=== PATIENT | female | born 1955 | race Caucasian/White ===

== ENCOUNTER 2022-03-24 08:53 | Outpatient (REF) | payer MEDICARE, SELFPAY ==
[2022-03-24 12:02] LABS: C Reactive Protein < 0.04 mg/dL (< or = 0.50); Cholesterol 169 mg/dL; HDL Cholesterol 62 mg/dL; LDL Cholesterol Calculated 95 mg/dl; Triglycerides 60 mg/dL
[2022-03-24 12:20] LABS: Erythrocyte Sedimentation Rate 2 MM/HR (0-20)
== END 2022-03-24 08:54 | disposition home or self-care (01) ==
LOC: HO.HMGCLDS 08:53
PROVIDERS: PCP Internal Medicine; Visit Provider Internal Medicine
DX: Z00.00 Encounter for general adult medical examination without abnormal findings (principal)
CPT/HCPCS: 36415; 80061; 85652; 86140

== ENCOUNTER 2022-12-20 11:48 | Outpatient (AMB) | payer MEDICARE, SELFPAY ==
[2022-12-20 11:56] VITALS: BP 128/86; PULSE 83; O2SAT 99; BMI 24.8
--- NOTE | 2022-12-20 11:56 | A.OFFPC_ITS ---
Vital Signs 12/20/22 11:56 Height 5 ft 10 in Weight 173 lb BMI 24.8 BP 128/86 Blood Pressure Location Rt brachial Position Sitting Pulse 83 Pulse Source Pulse Oximeter Pulse Oximetry (%) 99 Oxygen Delivery Method Room Air Intake Visit Reasons: Pap smear Intake Note: pt says she has some concerns about her BP Allergies Penicillins Adverse Reaction (Unknown, Verified 12/20/22 12:02) Rash Medication List - Last Reconciled 12/20/22 by Kirstie Cedillo MD rizatriptan take 1 tablet at onset of headache; if no relief, may repeat 1 tablet after at least 2 hrs PO Tobacco use date assessed: 12/20/22 Fall risk assessment: No Falls in past year Last assessed Fall Risk: 12/20/22 Dental Screening Dental Screen Date: 12/20/22 Did you have a dental visit in the last 12 months?: Yes Did you have a dental problem in the last 6 months where you did not have access to dental care?: No Was dental information given to patient?: Patient has dentist HPI Pap smear HPI Details Pt presents for pap smear required by renal transplant team to be a kidney donor. Pt was found to have borderline elevated BP and had 24 BP monitoring which showed mostly well controlled blood pressure. Patient has been taking gabapentin for essential tremor prescribed by neurologist. She reports significantly improved migraine headaches since started taking gabapentin. 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 Rocael Nieves, Melia Wilson, Mark Cullen and colleagues, with an educational sergio from [employer]. Review of Systems Const All systems reviewed & are unremarkable except as noted in HPI and below Reports no additional complaints Eyes Reports no additional complaints ENT Reports no additional complaints Card Reports no additional complaints Resp Reports no additional complaints GI Reports no additional complaints Physical exam (Primary Care) Vital Signs: Last Vital Signs Pulse 83 12/20/22 11:56 BP 128/86 12/20/22 11:56 Pulse Ox 99 12/20/22 11:56 Oxygen Delivery Method Room Air 12/20/22 11:56 BMI result Body Mass Index 24.8 Tobacco/Smoking Status: Tobacco use Status Tobacco use date assessed 12/20/22 12/20/22 12:04 Patient Tobacco Use Status Never used Tobacco 12/20/22 11:57 e-Cigarette/Vaping Use Never Used 12/20/22 11:57 Thrive Assessment: Date of Thrive Assessment Date Thrive assessed 08/11/22 12/20/22 11:57 Const General: no acute distress HENMT Face and sinus: Yes normal facial exam Resp Effort & Inspection: normal respiratory effort Auscultation: clear to auscultation bilaterally Cardio Rhythm: regular rhythm Heart sounds: S1 normal heart sound present and S2 normal heart sound present GI Inspection: Yes normal to inspection Palpation (GI): Soft to palpation Auscultation: normal bowel sounds Speculum Exam - Vagina: vagina atrophic Speculum Exam - Cervix: normal appearance of the cervix Bimanual exam- vagina & uterus: normal bimanual exam Assessment and Plan Assessment & Plan (1) Migraine headache: Comment: f/u Neurology [facility] Code(s): G43.909 - Migraine, unspecified, not intractable, without status migrainosus Plan: CONTINUE GABAPENTIN (2) Elevated BP without diagnosis of hypertension: Code(s): R03.0 - Elevated blood-pressure reading, without diagnosis of hypertension Plan: Low sodium diet regular cardiovascular exercise discussed with the patient. (3) Annual physical exam: Code(s): Z00.00 - Encounter for general adult medical examination without abnormal findings Plan: Pap smear was done Orders: Orders Pap Smear Today Z00.00 - Encounter for general adult medical examination without abnormal findings Medications: New timolol maleate 0.25% 1 drp ophthalmic (eye) DAILY 5 mL 0RF gabapentin 300 mg PO BID 60 caps 0RF Coding Level of Care Code Est Pt Level 4 (20631) Diagnoses Migraine headache G43.909 Elevated BP without diagnosis of hypertension R03.0 Annual physical exam Z00.00
== END 2022-12-20 12:54 | disposition home or self-care (01) ==
PROVIDERS: PCP Internal Medicine; Visit Provider Internal Medicine
DX: G43.909 Migraine, unspecified, not intractable, without status migrainosus (principal); R03.0 Elevated blood-pressure reading, without diagnosis of hypertension; Z00.00 Encounter for general adult medical examination without abnormal findings
CPT/HCPCS: 99214

== ENCOUNTER 2022-12-20 13:47 | Outpatient (REF) | payer MEDICARE, SELFPAY | END 2022-12-20 13:48 | disposition home or self-care (01) | LOC: HO.LNP 13:47 | PROVIDERS: Visit Provider Internal Medicine | DX: Z12.4 Encounter for screening for malignant neoplasm of cervix (principal); Z11.51 Encounter for screening for human papillomavirus (HPV) | CPT/HCPCS: 87624; 88142 ==

== ENCOUNTER 2023-03-27 11:18 | Outpatient (AMB) | payer MEDICARE, SELFPAY ==
[2023-03-27 11:44] VITALS: BP 108/64; PULSE 59; O2SAT 98; BMI 23.0
--- NOTE | 2023-03-27 11:44 | MHC.PC.OV ---
Vital Signs 03/27/23 11:44 Height 5 ft 10 in Weight 160 lb BMI 23.0 BP 108/64 Blood Pressure Location Lt brachial Position Sitting Pulse 59 Pulse Source Pulse Oximeter Pulse Oximetry (%) 98 Oxygen Delivery Method Room Air Intake Visit Reasons: PE Intake Note: Pt is here today for PE. Allergies Penicillins Adverse Reaction (Unknown, Verified 03/27/23 11:47) Rash Medication List - Last Reconciled 03/27/23 by Kirstie Cedillo MD gabapentin 300 mg PO BID rizatriptan take 1 tablet at onset of headache; if no relief, may repeat 1 tablet after at least 2 hrs PO timolol maleate 0.25% 1 drp ophthalmic (eye) DAILY Tobacco use date assessed: 03/27/23 Fall risk assessment: No Falls in past year Last assessed Fall Risk: 03/27/23 Dental Screening Dental Screen Date: 03/27/23 Did you have a dental visit in the last 12 months?: Yes Did you have a dental problem in the last 6 months where you did not have access to dental care?: No Was dental information given to patient?: Patient has dentist HPI PE HPI Details Patient presents for physical. Patient reports chronic diarrhea with of bloating and has been modifying had diet decreasing carbohydrates and fruits and vegetables. Patient had negative GI workup in May including colonoscopy EGD and CT of the abdomen. Patient lost 15 lb since December. 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 How often do you have a drink containing alcohol?: Never 3. How often do you have six or more drinks on one occasion?: Never Total Score: 0 VANE-7 AMB Questionnaire VANE-7 Date VANE - 7 assessed: 08/11/22 Feeling nervous, anxious, or on edge: 0 = Not at all Not being able to stop or control worryin = Not at all Worrying too much about different things: 0 = Not at all Trouble relaxin = Not at all Being so restless that it is hard to sit still: 0 = Not at all Becoming easily annoyed or irritable: 0 = Not at all Feeling afraid as if something awful might happen: 0 = Not at all Total VANE-7 score (0-4 normal; 5-9 mild; 10-14 moderate; 15-21 severe): 0 Source: Developed by Drs. Rocael Nieves, Melia Wilson, Mark Cullen and colleagues, with an educational sergio from [employer]. Review of Systems Const All systems reviewed & are unremarkable except as noted in HPI and below Reports no additional complaints Eyes Reports no additional complaints ENT Reports no additional complaints Card Reports no additional complaints Resp Reports no additional complaints GI Reports no additional complaints Reports no additional complaints Physical exam (Primary Care) Vital Signs: Last Vital Signs Pulse 59 03/27/23 11:44 BP 108/64 03/27/23 11:44 Pulse Ox 98 03/27/23 11:44 Oxygen Delivery Method Room Air 03/27/23 11:44 BMI result Body Mass Index 23.0 Tobacco/Smoking Status: Tobacco use Status Tobacco use date assessed 03/27/23 03/27/23 11:50 Patient Tobacco Use Status Never used Tobacco 03/27/23 11:50 e-Cigarette/Vaping Use Never Used 03/27/23 11:44 Thrive Assessment: Date of Thrive Assessment Date Thrive assessed 08/11/22 03/27/23 11:44 Const General: no acute distress HENMT Head: Yes normal to inspection Ears: hearing grossly normal bilaterally Face and sinus: Yes normal facial exam Eyes General: appearance normal, both eyes and all related structures Neck Neck: Yes no lymphadenopathy and Yes supple Resp Effort & Inspection: normal respiratory effort Auscultation: clear to auscultation bilaterally Cardio Rhythm: regular rhythm Heart sounds: S1 normal heart sound present and S2 normal heart sound present GI Inspection: Yes normal to inspection Palpation (GI): Soft to palpation Percussion: Yes normal to percussion Auscultation: normal bowel sounds Assessment and Plan Assessment & Plan (1) Weight loss: Code(s): R63.4 - Abnormal weight loss Plan: Increasing caloric intake discussed with the patient. She will return for fasting blood work including TSH CBC comprehensive panel (2) Neck pain: Code(s): M54.2 - Cervicalgia Plan: For chronic neck pain patient will schedule appointment for physical therapy in [place] (3) Postmenopausal: Code(s): Z78.0 - Asymptomatic menopausal state Plan: Patient will schedule DEXA at [facility] (4) Hx of colonoscopy: Comment: 07/09 negative [facility] GI Dr. Linn Code(s): Z98.890 - Other specified postprocedural states (5) Annual physical exam: Code(s): Z00.00 - Encounter for general adult medical examination without abnormal findings Plan: Well-balanced diet and regular physical activity discussed with the pt (6) Chronic diarrhea: Comment: f/u GI Dr. De La Cruz, EGD consistent with chronic gastritis and negative colonoscopy in June 2022, blood work and stool studies for C diff H pylori and celiac negative Code(s): K52.9 - Noninfective gastroenteritis and colitis, unspecified Orders: Orders Comprehensive [place]. Panel Fast Today R63.4 - Abnormal weight loss Complete Blood Count Auto Diff Today R63.4 - Abnormal weight loss TSH reflex Free T4 Today R63.4 - Abnormal weight loss Lipid Panel Today R63.4 - Abnormal weight loss IRON PROFILE Today R63.4 - Abnormal weight loss Vitamin D 25-OH Total Today R63.4 - Abnormal weight loss PT Evaluation and Treatment Today M54.2 - Cervicalgia XR DEXA axial skeleton Today Z78.0 - Asymptomatic menopausal state Coding Level of Care Code Est Pt Prev Care >65y(84675) Diagnoses Weight loss R63.4 Neck pain M54.2 Postmenopausal Z78.0 Hx of colonoscopy Z98.890 Annual physical exam Z00.00 Chronic diarrhea K52.9
== END 2023-03-27 12:48 | disposition home or self-care (01) ==
PROVIDERS: PCP Internal Medicine; Visit Provider Internal Medicine
DX: R63.4 Abnormal weight loss (principal); M54.2 Cervicalgia; K52.9 Noninfective gastroenteritis and colitis, unspecified; Z78.0 Asymptomatic menopausal state; Z98.890 Other specified postprocedural states
CPT/HCPCS: 99214

== ENCOUNTER 2023-03-29 08:29 | Outpatient (REF) | payer MEDICARE, SELFPAY ==
[2023-03-29 11:34] LABS: MANUAL DIFF FLAG NO
[2023-03-29 11:48] LABS: Basophils Percent Auto 0.3 % (0-2); Eosinophils Percent Auto 0.8 % (0-4); Hematocrit 38.4 % (37.0-47.0); Hemoglobin 12.5 g/dl (12.0-16.0); Imm Gran Abs Auto 0.01 X10*3/uL (0.00-0.03); Imm Gran Pct Auto 0.3 % (0.0-0.4); Lymphocytes Absolute Auto 1.7 X10*3/uL (1.2-4.9); Lymphocytes Percent Auto 45.3 % (20-40); Mean Corpuscular HGB Conc 32.6 g/dl (31.0-35.0); Mean Corpuscular Hemoglobin 29.9 pg (27.0-33.0); Mean Corpuscular Volume 91.9 fL (80.0-98.0); Monocytes Absolute Auto 0.3 X10*3/uL (0.1-1.2); Monocytes Percent Auto 8.9 % (2-11); Neutrophils Absolute Auto 1.7 x10*3/uL (2.0-8.3); Neutrophils Percent Auto 44.4 % (45-73); Platelet Count 160 X10*3/uL (160-400); Red Blood Count 4.18 X10*6/uL (4.20-5.50); Red Cell Distribution Width 14.2 % (11.0-16.0); White Blood Count 3.8 X10*3/uL (4.8-10.8)
[2023-03-29 12:28] LABS: Alanine Aminotransferase 13 U/L (0-31); Alkaline Phosphatase 78 U/L (39-117); Anion Gap 8 (12-20); Aspartate Amino Transferase 13 U/L (5-31); Bilirubin Total 0.6 mg/dL (0.0-1.0); Blood Urea Nitrogen 16 mg/dL (9-16); Calcium 9.2 mg/dL (8.4-10.2); Carbon Dioxide 31 mmol/L (22-29); Chloride 104 mmol/L (96-108); Cholesterol 174 mg/dL (<200); Estimated Glomerular Filt Rate > 60; Glucose Fasting 92 mg/dL (60-99); HDL Cholesterol 61 mg/dL (>40); Iron 83 mcg/dL (30-160); LDL Cholesterol Calculated 102 mg/dL (<100); Percent Iron Saturation 40 % (15-50); Potassium 4.5 mmol/L (3.3-5.1); Sodium 138 mmol/L (135-145); Total Iron Binding Capacity 207 mcg/dL (228-428); Total Protein 6.5 g/dL (6.5-8.0); Triglycerides 57 mg/dL (<150); Unsaturated Iron Binding 124 ug/dL
[2023-03-29 12:31] LABS: TSH reflex Free T4 1.45 uIU/mL (0.32-4.0); Vitamin D 25-OH Total 39.8 ng/mL (>30)
== END 2023-03-29 08:30 | disposition home or self-care (01) ==
LOC: HO.HMGCLDS 08:29
PROVIDERS: PCP Internal Medicine; Visit Provider Internal Medicine
DX: R63.4 Abnormal weight loss (principal)
CPT/HCPCS: 36415; 80053; 80061; 82306; 83540; 84443; 85025

== ENCOUNTER 2023-05-30 10:48 | Outpatient (AMB) | payer MEDICARE, SELFPAY ==
[2023-05-30 11:05] VITALS: BP 124/74; PULSE 57; O2SAT 98; BMI 23.0
--- NOTE | 2023-05-30 11:05 | MHC.PC.OV ---
Vital Signs 05/30/23 11:05 Height 5 ft 10 in Weight 160 lb BMI 23.0 BP 124/74 Blood Pressure Location Lt brachial Position Sitting Pulse 57 Pulse Source Pulse Oximeter Pulse Oximetry (%) 98 Oxygen Delivery Method Room Air Intake Visit Reasons: digestive issues Intake Note: Pt is here today for a sick visit. Pt c/o digestive issues. Allergies Penicillins Adverse Reaction (Unknown, Verified 05/30/23 11:10) Rash Medication List - Last Reconciled 05/30/23 by Kirstie Cedillo MD gabapentin 300 mg PO BID rizatriptan take 1 tablet at onset of headache; if no relief, may repeat 1 tablet after at least 2 hrs PO timolol maleate 0.25% 1 drp ophthalmic (eye) DAILY Tobacco use date assessed: 05/30/23 HPI digestive issues HPI Details Pt presents for f/u IBS. Pt has been working with tribal council member trying to eliminate different food products from her diet. she is feeling better. diarrhea resolved and patient has been able to maintain her weight. 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 Rocael Nieves, Melia Wilson, Mark Cullen and colleagues, with an educational sergio from [employer]. Review of Systems Const All systems reviewed & are unremarkable except as noted in HPI and below Reports no additional complaints Eyes Reports no additional complaints ENT Reports no additional complaints Card Reports no additional complaints Resp Reports no additional complaints GI Reports no additional complaints Reports no additional complaints Physical exam (Primary Care) Vital Signs: Last Vital Signs Pulse 57 05/30/23 11:05 BP 124/74 05/30/23 11:05 Pulse Ox 98 05/30/23 11:05 Oxygen Delivery Method Room Air 05/30/23 11:05 BMI result Body Mass Index 23.0 Tobacco/Smoking Status: Tobacco use Status Tobacco use date assessed 05/30/23 05/30/23 11:15 Patient Tobacco Use Status Never used Tobacco 05/30/23 11:05 e-Cigarette/Vaping Use Never Used 05/30/23 11:05 Thrive Assessment: Date of Thrive Assessment Date Thrive assessed 08/11/22 05/30/23 11:05 Const General: no acute distress HENMT Head: Yes normal to inspection Ears: hearing grossly normal bilaterally Face and sinus: Yes normal facial exam Mouth: Normal oral and palatal mucosa present Throat: Yes posterior oropharynx normal Eyes General: appearance normal, both eyes and all related structures Neck Neck: Yes no lymphadenopathy and Yes supple Resp Effort & Inspection: normal respiratory effort Auscultation: clear to auscultation bilaterally Cardio Rhythm: regular rhythm Heart sounds: S1 normal heart sound present and S2 normal heart sound present GI Inspection: Yes normal to inspection Palpation (GI): Soft to palpation Percussion: Yes normal to percussion Auscultation: normal bowel sounds Assessment and Plan Assessment & Plan (1) Neutropenia: Code(s): D70.9 - Neutropenia, unspecified Plan: recheck CBC and vit B 12 level (2) IBS (irritable bowel syndrome): Code(s): K58.9 - Irritable bowel syndrome without diarrhea Plan: CONTINUE HIGH-FIBER DIET AND FOLLOW-UP tribal council member and GI (3) Migraine headache: Comment: f/u Neurology [facility] Code(s): G43.909 - Migraine, unspecified, not intractable, without status migrainosus Plan: Follow-up with neurology continue rizatriptan p.r.n. Orders: Orders Complete Blood Count Man Dif Today D70.9 - Neutropenia, unspecified Vitamin B12 and Folate Today D70.9 - Neutropenia, unspecified Coding Level of Care Code Est Pt Level 4 (67346) Diagnoses Neutropenia D70.9 IBS (irritable bowel syndrome) K58.9 Migraine headache G43.909
== END 2023-05-30 11:44 | disposition home or self-care (01) ==
PROVIDERS: PCP Internal Medicine; Visit Provider Internal Medicine
DX: D70.9 Neutropenia, unspecified (principal); K58.9 Irritable bowel syndrome, unspecified; G43.909 Migraine, unspecified, not intractable, without status migrainosus
CPT/HCPCS: 99214

== ENCOUNTER 2023-05-30 11:44 | Outpatient (REF) | payer MEDICARE, SELFPAY ==
[2023-05-30 13:32] LABS: Baso%MD 0.2 %; Eos%MD 0.5 %; Hematocrit 38.5 % (37.0-47.0); Hemoglobin 12.6 g/dl (12.0-16.0); IG%MD 0.2 %; Lymph%MD 51.8 %; Mean Corpuscular HGB Conc 32.7 g/dl (31.0-35.0); Mean Corpuscular Hemoglobin 29.6 pg (27.0-33.0); Mean Corpuscular Volume 90.6 fL (80.0-98.0); Mean Platelet Volume 10.9 fL (9.4-12.3); Mono%MD 8.2 %; Neut%MD 39.1 %; Platelet Count 158 X10*3/uL (160-400); Red Blood Count 4.25 X10*6/uL (4.20-5.50); Red Cell Distribution Width 13.7 % (11.0-16.0); White Blood Count 4.2 X10*3/uL (4.8-10.8)
[2023-05-30 14:38] LABS: Folate 12.6 ng/mL (> or = 4.0); Vitamin B12 356 pg/mL (200-900)
[2023-05-30 14:50] LABS: Band Neutrophils Percent 0 % (3-5); Lymphocytes Absolute Manual 1.9 X10*3/uL (1.2-4.9); Lymphocytes Percent Manual 46 % (20-40); Monocytes Absolute Manual 0.3 X10*3/uL (0.1-1.2); Monocytes Percent Manual 6 % (2-11); Neutrophils Percent Manual 48 % (45-73)
[2023-05-30 14:51] LABS: RBC Morphology NOTED
[2023-05-30 14:52] LABS: Acanthocytes 1+ (0-2) /OIF; Ovalocytes 1+ (5-14) /OIF
[2023-05-30 14:53] LABS: Platelet Estimate NORMAL (NORMAL)
[2023-05-30 14:54] LABS: Platelet Morphology Comment NORMAL
== END 2023-05-30 11:45 | disposition home or self-care (01) ==
LOC: HO.HMGCLDS 11:44
PROVIDERS: PCP Internal Medicine; Visit Provider Internal Medicine
DX: D70.9 Neutropenia, unspecified (principal)
CPT/HCPCS: 36415; 82607; 82746; 85007; 85027

== ENCOUNTER 2023-11-29 08:36 | Outpatient (REF) | payer MEDICARE, SELFPAY ==
[2023-11-29 16:16] LABS: MANUAL DIFF FLAG NO
[2023-11-29 16:22] LABS: Basophils Percent Auto 0.5 % (0-2); Hematocrit 38.9 % (37.0-47.0); Hemoglobin 13.3 g/dl (12.0-16.0); Lymphocytes Absolute Auto 1.9 X10*3/uL (1.2-4.9); Lymphocytes Percent Auto 46.9 % (20-40); Mean Corpuscular HGB Conc 34.2 g/dl (31.0-35.0); Mean Corpuscular Hemoglobin 30.6 pg (27.0-33.0); Mean Corpuscular Volume 89.6 fL (80.0-98.0); Mean Platelet Volume 10.8 fL (9.4-12.3); Monocytes Absolute Auto 0.3 X10*3/uL (0.1-1.2); Monocytes Percent Auto 8.5 % (2-11); Neutrophils Absolute Auto 1.7 x10*3/uL (2.0-8.3); Neutrophils Percent Auto 43.1 % (45-73); Platelet Count 176 X10*3/uL (160-400); Red Blood Count 4.34 X10*6/uL (4.20-5.50); Red Cell Distribution Width 13.4 % (11.0-16.0)
[2023-11-29 16:48] LABS: Alanine Aminotransferase 21 U/L (0-31); Alkaline Phosphatase 80 U/L (39-117); Anion Gap 11 (12-20); Aspartate Amino Transferase 18 U/L (5-31); Bilirubin Total 0.5 mg/dL (0.0-1.0); Blood Urea Nitrogen 18 mg/dL (9-16); Carbon Dioxide 29 mmol/L (22-29); Chloride 105 mmol/L (96-108); Cholesterol 178 mg/dL (<200); Estimated Glomerular Filt Rate > 60; Glucose Fasting 91 mg/dL (60-99); HDL Cholesterol 70 mg/dL (>40); LDL Cholesterol Calculated 100 mg/dL (<100); Potassium 4.5 mmol/L (3.3-5.1); Sodium 140 mmol/L (135-145); Total Protein 6.2 g/dL (6.5-8.0); Triglycerides 42 mg/dL (<150)
[2023-11-29 16:53] LABS: Vitamin D 25-OH Total 37.7 ng/mL (>30)
== END 2023-11-29 08:37 | disposition home or self-care (01) ==
LOC: HO.HKASLDS 08:36
PROVIDERS: Visit Provider Internal Medicine
DX: Z00.00 Encounter for general adult medical examination without abnormal findings (principal); D70.9 Neutropenia, unspecified; E55.9 Vitamin D deficiency, unspecified
CPT/HCPCS: 36415; 80053; 80061; 82306; 85025

== ENCOUNTER 2023-12-03 09:53 | Outpatient (AMB) | payer MEDICARE, SELFPAY ==
[2023-12-03 10:20] VITALS: BP 108/66; PULSE 60; O2SAT 98; BMI 22.4
--- NOTE | 2023-12-03 10:20 | A.OFFPC_ITS ---
Vital Signs 12/03/23 10:20 Height 5 ft 10 in Weight 156 lb BMI 22.4 BP 108/66 Blood Pressure Location Lt brachial Position Sitting Pulse 60 Pulse Source Pulse Oximeter Pulse Oximetry (%) 98 Oxygen Delivery Method Room Air Intake Visit Reasons: 6 month follow up Allergies Penicillins Adverse Reaction (Unknown, Verified 12/03/23 10:21) Rash Medication List - Last Reconciled 12/03/23 by Kirstie Cedillo MD rizatriptan take 1 tablet at onset of headache; if no relief, may repeat 1 tablet after at least 2 hrs PO timolol maleate 0.25% 1 drp ophthalmic (eye) DAILY Tobacco use date assessed: 12/03/23 Fall risk assessment: No Falls in past year Last assessed Fall Risk: 12/03/23 Dental Screening Dental Screen Date: 12/03/23 Did you have a dental visit in the last 12 months?: Yes Did you have a dental problem in the last 6 months where you did not have access to dental care?: No Was dental information given to patient?: Patient has dentist HPI 6 month follow up HPI Details Pt presents for f/u DEXA, normal, and IBS, improved with probiotics. 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 1. Little interest or pleasure in doing things: not at all 2. Feeling down, depressed, or hopeless: not at all 3. Trouble falling or staying asleep, or sleeping too much: several days 4. Feeling tired or having little energy: not at all 5. Poor appetite or overeating: not at all 6. Feeling bad about yourself - or that you are a failure or have let yourself or your family down: not at all 7. Trouble concentrating on things, such as reading the newspaper or watching television: not at all 8. Moving or speaking so slowly that other people could have noticed. Or the opposite - being so fidgety or restless that you have been moving around a lot more than usual: not at all 9. Thoughts that you would be better off or of hurting yourself in some way: not at all Total score: 1 Depression Screening Interpretation: Negative Depression Screening Done: Yes 72014 - PHQ-9 Billing: Yes Source: Developed by Drs. Rocael Nieves, Melia Wilson, Mark Cullen and colleagues, with an educational sergio from [employer]. Thrive Questionnaire Date Thrive assessed: 12/03/23 I am a: Patient What is your living situation today?: I have a steady place to live Within the past 12 months, did the food you bought not last and you didn't have the money to get more?: Never true Within the past 12 months, did you worry whether your food would run out before you got money to buy more?: Never true Do you have trouble paying for medicines?: No Do you have trouble getting transportation to medical appointments?: No Do you have trouble paying your heating and electricity bill?: No Do you have trouble taking care of your child, family member or friend?: No Do you have trouble with day-to-day activities such as bathing, preparing meals, shopping, managing finances, etc.?: No Are you interested in more education?: No Please select the resources that you would like help with: None Currently or been in a relationship where the following occur: No concerns reported THRIVE Score: 0 AUDIT C Alcohol Use Questionnaire (AUDIT-C) 1. How often do you have a drink containing alcohol?: Never 3. How often do you have six or more drinks on one occasion?: Never Total Score: 0 VANE-7 AMB Questionnaire VANE-7 Date VANE - 7 assessed: 12/03/23 Feeling nervous, anxious, or on edge: 0 = Not at all Not being able to stop or control worryin = Not at all Worrying too much about different things: 1 = Several days Trouble relaxin = Not at all Being so restless that it is hard to sit still: 0 = Not at all Becoming easily annoyed or irritable: 0 = Not at all Feeling afraid as if something awful might happen: 0 = Not at all Total VANE-7 score (0-4 normal; 5-9 mild; 10-14 moderate; 15-21 severe): 1 Source: Developed by Drs. Rocael Nieves, Melia Wilson, Mark Cullen and colleagues, with an educational sergio from [employer]. VANE-7 Assessment Billing VANE-7 Assessment Tool: VANE-7 Assessment [id number] Review of Systems Const All systems reviewed & are unremarkable except as noted in HPI and below ENT Reports no additional complaints Card Reports no additional complaints Resp Reports no additional complaints GI Reports no additional complaints Reports no additional complaints Physical exam (Primary Care) Vital Signs: Last Vital Signs Pulse 60 12/03/23 10:20 BP 108/66 12/03/23 10:20 Pulse Ox 98 12/03/23 10:20 Oxygen Delivery Method Room Air 12/03/23 10:20 BMI result Body Mass Index 22.4 Tobacco/Smoking Status: Tobacco use Status Tobacco use date assessed 12/03/23 12/03/23 10:25 Patient Tobacco Use Status Never used Tobacco 12/03/23 10:25 e-Cigarette/Vaping Use Never Used 12/03/23 10:25 PHQ-9: PHQ-9 Score PHQ-9: Total score 1 12/03/23 10:25 Depression Screening Interpretation: Negative Thrive Assessment: Date of Thrive Assessment Date Thrive assessed 12/03/23 12/03/23 10:25 Currently or been in a relationship where the following occur: No concerns reported Const General: no acute distress Eyes General: appearance normal, both eyes and all related structures Neck Neck: Yes supple Resp Effort & Inspection: normal respiratory effort Auscultation: clear to auscultation bilaterally Cardio Rhythm: regular rhythm Heart sounds: S1 normal heart sound present and S2 normal heart sound present GI Inspection: Yes normal to inspection Palpation (GI): Soft to palpation Assessment and Plan Assessment & Plan (1) IBS (irritable bowel syndrome): Code(s): K58.9 - Irritable bowel syndrome without diarrhea Plan: Continue high-fiber diet and probiotics (2) Visit for review of DEXA scan: Comment: DEXA [facility] 04/2023 Code(s): Z71.2 - Person consulting for explanation of examination or test findings Plan: Continue regular physical activity and vitamin-D supplement (3) History of screening mammography: Comment: [facility] 04/2023 Code(s): Z92.89 - Personal history of other medical treatment (4) Hx of colonoscopy: Comment: 07/09 negative [facility] GI Dr. Linn Code(s): Z98.890 - Other specified postprocedural states (5) Migraine headache: Comment: f/u Neurology [facility] Code(s): G43.909 - Migraine, unspecified, not intractable, without status migrainosus Plan: Follow-up with Neurology, return for physical in 1 year (6) Annual physical exam: Code(s): Z00.00 - Encounter for general adult medical examination without abnormal findings (7) Vitamin D deficiency: Code(s): E55.9 - Vitamin D deficiency, unspecified Orders: Orders Complete Blood Count Auto Diff 1 Year E55.9 - Vitamin D deficiency, unspecified, Z00.00 - Encounter for general adult medical examination without abnormal findings Vitamin D 25-OH Total 1 Year E55.9 - Vitamin D deficiency, unspecified, Z00.00 - Encounter for general adult medical examination without abnormal findings Comprehensive [place]. Panel Fast 1 Year E55.9 - Vitamin D deficiency, unspecified, Z00.00 - Encounter for general adult medical examination without abnormal findings Lipid Panel 1 Year E55.9 - Vitamin D deficiency, unspecified, Z00.00 - Encounter for general adult medical examination without abnormal findings Coding Level of Care Code Est Pt Level 3 (18672) Diagnoses IBS (irritable bowel syndrome) K58.9 Visit for review of DEXA scan Z71.2 History of screening mammography Z92.89 Hx of colonoscopy Z98.890 Migraine headache G43.909 Annual physical exam Z00.00 Vitamin D deficiency E55.9 Additional Codes VANE-7 Assessment Billing - VANE-7 Assessment Tool: VANE-7 Assessment [id number] ([id number])
== END 2023-12-03 11:12 | disposition home or self-care (01) ==
PROVIDERS: PCP Internal Medicine; Visit Provider Internal Medicine
DX: K58.9 Irritable bowel syndrome, unspecified (principal); Z71.2 Person consulting for explanation of examination or test findings; Z92.89 Personal history of other medical treatment; Z98.890 Other specified postprocedural states; G43.909 Migraine, unspecified, not intractable, without status migrainosus; Z00.00 Encounter for general adult medical examination without abnormal findings; E55.9 Vitamin D deficiency, unspecified

== ENCOUNTER → 2023-12-03 09:53 | Outpatient (BNVA) | payer MEDICARE, SELFPAY | PROVIDERS: PCP Internal Medicine; Visit Provider Internal Medicine | DX: Z00.00 Encounter for general adult medical examination without abnormal findings (principal); K58.9 Irritable bowel syndrome, unspecified; G43.909 Migraine, unspecified, not intractable, without status migrainosus; E55.9 Vitamin D deficiency, unspecified; Z98.890 Other specified postprocedural states; Z92.89 Personal history of other medical treatment | CPT/HCPCS: 96127; 99212 ==

== ENCOUNTER 2024-09-02 19:18 | Emergency (ER) | payer MEDICARE, SELFPAY ==
[2024-09-02] VITALS (8 sets, daily range): BP systolic 121–152; BP diastolic 64–82; PULSE 89–111; RESP 16–18; TEMP 37.4–38.1; O2SAT 95–96; BMI 23.1
--- NOTE | ~2024-09-02 | XR_ITS ---
CLINICAL HISTORY: cough, fever 1 view chest x-ray Comparison: None provided Findings: The lungs are clear. Heart size is normal. No acute fracture. IMPRESSION: 1. No acute findings. This document has been electronically signed by: Mary Causey MD on 09/02/2024 20:48:21
--- NOTE | 2024-09-02 19:48 | ED.GENADULT ---
HPI - General Adult General Chief complaint: Fever Stated complaint: fever/neck ache/lethargic/didn't sleep last night Time Seen by Provider: 09/02/24 20:17 Source: patient and old records reviewed Mode of arrival: ambulatory Limitations: no limitations History of Present Illness ED Provider: JESSE MONTE narrative: 69 yo female with PMH of migraines, IBS who notes about 2 days ago she started to feel unwell with fatigue, poor PO intake. Last night she started to have neck pain, body aches, low grade fevers. She is urinating more. She couldn't sleep due to her symptoms. She notes about 2 weeks ago she did go hiking but states she only saw ticks on her clothes. She denies any rash, cough. She notes she took naproxen earlier today. She states she has not traveled, had sick contacts. She states she googled her symptoms and became scared she had meningitis. MD complaint: fatigue, malaise, anorexia, Onset (ago): day(s) (2) Location: neck and chest Radiation: non-radiation Severity: mild Quality: aching Pain Consistency: intermittent Relieving factors: none Exacerbating factors: medication Associated symptoms: fever/chills, headaches, loss of appetite, malaise, shortness of breath and weakness Treatments prior to arrival: none Related Data Previous Rx's ?Medication ?Instructions ?Recorded rizatriptan 5 mg tablet See Rx Instructions PO .COMPLEX 08/11/22 #10 tabs timolol maleate 0.25 % eye drops 1 drp ophthalmic (eye) DAILY #5 mL 12/20/22 doxycycline hyclate 100 mg capsule 100 mg PO BID 21 days #42 caps 09/02/24 Allergies Allergy/AdvReac Type Severity Reaction Status Date / Time Penicillins AdvReac Unknown Rash Verified 09/02/24 19:53 Review of Systems Review of Systems: Constitutional : pos Fever, pos Chills, pos Fatigue, pos anorexia ENT/Mouth : No sore throat, No Rhinorrhea Eyes: No Eye Pain, No Swelling, No Redness Cardiovascular : No Chest Pain, pos SOB, No Dyspnea on Exertion Respiratory : No Cough, No Sputum Gastrointestinal : pos Nausea, No Vomiting, No Diarrhea, No abdominal Pain Genitourinary : No Dysuria, No Urinary Frequency, No Hematuria, Musculoskeletal : pos joint pain, No Myalgias, No Joint Swelling, pos neck pain Skin : No Skin Lesions, No rash Neuro : No Weakness, No Numbness, No Dizziness, positive Headache Psych : No Anxiety/Panic, No Depression Heme/Lymph: No Bruising, No Bleeding,No Lymphadenopathy Endocrine : No Polyuria, No Polydipsia All other systems reviewed and are negative [facility] Past Medical History Attestation statement: The following information was validated with the patient. 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, Housing: House Patient Tobacco Use Status: Never used Tobacco Smoked in Last 30 Days: No e-Cigarette/Vaping Use: Never Used Use of substances other than those prescribed or required for medical reasons: No Advance Directives: No Advance Directives Information Provided: No Do you have a plan to hurt others: No Plan service: No Current occupational status: retired Cognitive needs: No Hearing needs: No Vision needs: Yes Physical Exam ED Vital Signs: Vital Signs - 24 hr 09/02/24 19:49 09/02/24 20:09 09/02/24 21:11 Temperature 99.9 F 100.6 F H Pulse Rate 111 H 101 H 90 Respiratory Rate 16 18 Blood Pressure 152/79 H 138/68 139/82 Pulse Oximetry 95 95 96 Oxygen Delivery Method Room Air Room Air Room Air 09/02/24 21:29 09/02/24 21:30 09/02/24 22:05 Temperature 99.4 F 99.4 F 99.3 F Pulse Rate 90 90 89 Respiratory Rate 17 17 16 Blood Pressure 138/78 138/78 138/78 Pulse Oximetry 95 95 Oxygen Delivery Method Room Air Room Air BMI result Body Mass Index 23.1 Appearance: Alert. Oriented X3. No acute distress. Eyes: Pupils equal, round and reactive to light. ENT: Pharynx normal. MMM Neck: Normal inspection. Neck supple. no meningeal signs soft and supple, neg kernigs, brudzinksi sign CVS: Normal heart rate and rhythm. Pulses normal. Respiratory: No respiratory distress. Breath sounds normal. Abdomen: Soft and nontender. Skin: Skin warm and dry. Normal skin color. Normal skin turgor. Extremities: No lower extremity edema. No calf ttp Neuro: Oriented X 3. No motor deficit. No sensory deficit. CN2-12 intact Course Course Course Narrative: RME, this is a rapid medical exam performed by [facility] please refer to primary provider for complete H&P- 69-year-old female presents for evaluation of neck pain, headache. She reports her symptoms have been bad for the last 48 hours. She reports general malaise, nausea and subjective fevers. She is able to touch her chin to her chest without significant discomfort. No neuro deficits in triage. She is alert and oriented. Plan for labs including inflammatory markers Medications Administered Discontinued Medications Generic Name Dose Route Start Last Admin Trade Name Freq PRN Reason Stop Dose Admin Ceftriaxone Sodium 1 gm 09/02/24 20:26 09/02/24 20:51 Ceftriaxone Sodium 1 Gm Vial IVPUSH 09/02/24 20:27 1 gm ONCE ONE Administration Lactated Ringer's 1,000 mls @ 999 mls/hr 09/02/24 20:24 09/02/24 22:05 Lr IV 09/02/24 21:24 Infused .Q1H1M ONE Infusion Acetaminophen 1,000 mg in 100 mls @ 400 mls/hr 09/02/24 20:24 09/02/24 21:11 Ofirmev IV 09/02/24 20:38 Infused ONCE ONE Infusion Medical Decision Making Medical Decision Making [facility] Narrative: 69 yo female with PMH of migraines, IBS here with c/o fever/body aches/weakness/sore neck but no meningeal signs on exam. I am very suspicious given her constellation of symptoms of fatigue, body aches, headaches, fevers, joint pain that she has either COVID or tick borne illness. Will obtain labs, tick borne panel, lyme test, UA + CXR. Will start on IV ceftriaxone and cover with doxy for 21 days. Neg kernigs and leticia doubt meningitis. Differential Diagnosis Differential Diagnoses: The differential diagnosis associated with the presentation includes tick borne illness, viral syndrome Admission/Observation Consideration of admission/observation: Escalation of care including admission/observation considered can be managed with close PCP follow up on doxycycline repeat trop stable no CP doubt ACS or VTE this seems viral in nature. CXR clear Lab Data MDM Lab Attestation statement: I reviewed the patient's lab results. 09/02/24 19:59 09/02/24 19:59 Labs: Lab Results 09/02/24 09/02/24 09/02/24 Range/Units 19:59 20:00 20:23 WBC 3.4 L (4.8-10.8) X10*3/uL RBC 4.47 (4.20-5.50) X10*6/uL Hgb 13.4 (12.0-16.0) g/dl Hct 38.3 (37.0-47.0) % MCV 85.7 (80.0-98.0) fL MCH 30.0 (27.0-33.0) pg MCHC 35.0 (31.0-35.0) g/dl RDW 13.6 (11.0-16.0) % Plt Count 103 L D (160-400) X10*3/uL MPV 9.8 (9.4-12.3) fL Immature Gran % (Auto) 0.3 (0.0-0.4) % Neut % (Auto) 74.0 H (45-73) % Lymph % (Auto) 14.5 L (20-40) % Roberts % (Auto) 11.2 H (2-11) % Eos % (Auto) 0.0 (0-4) % Baso % (Auto) 0.0 (0-2) % Lymph # (Auto) 0.5 L (1.2-4.9) X10*3/uL Roberts # (Auto) 0.4 (0.1-1.2) X10*3/uL Eos # (Auto) 0.0 (0.0-0.4) X10*3/uL Baso # (Auto) 0.0 (0.0-0.2) X10*3/uL Abs Immat Gran (auto) 0.01 (0.00-0.03) X10*3/uL Absolute Neuts (auto) 2.5 (2.0-8.3) x10*3/uL Absolute Nucleated RBC 0.000 (0.0-0.012) X10*3/uL Nucleated RBC % (auto) 0.0 (0.0-0.2) /100WBC ESR 14 (0-20) MM/HR Sodium 139 (135-145) mmol/L Potassium 3.9 (3.3-5.1) mmol/L Chloride 105 (96-108) mmol/L Carbon Dioxide 23 (22-29) mmol/L Anion Gap 15 (12-20) BUN 18 H (9-16) mg/dL Creatinine 0.70 (0.5-1.4) mg/dL Estim Creat Clear Calc 83.1 Estimated GFR > 60 Random Glucose 112 (60-115) mg/dL Lactic Acid (0.5-2.0) mmol/L Calcium 8.9 (8.4-10.2) mg/dL Total Bilirubin 0.9 (0.0-1.0) mg/dL AST 47 H (5-31) U/L ALT 44 H (0-31) U/L Alkaline Phosphatase 120 H (39-117) U/L Troponin I High Sens 7.9 (<3.5-17.0) ng/L C-Reactive Protein 4.16 H (< or = 0.50) mg/dL Total Protein 6.7 (6.5-8.0) g/dL Albumin 4.3 (3.5-5.0) g/dL Urine Color Dark Yellow Urine Appearance Clear Urine pH 5.5 (5.0-9.0) Ur Specific [place] 1.020 (1.005-1.025) Urine Protein 30 (1+) H (Neg-Trace) mg/dL Urine Glucose (UA) Negative (Negative) mg/dL Urine Ketones 40 (Negative) mg/dL Urine Blood Trace H (Negative) Urine Nitrite Negative (Negative) Ur Leukocyte Esterase Negative (Negative) Urine RBC 6-10 H (0-2) /HPF Urine WBC 0-5 (0-5) /HPF Ur Squamous Epith Cells 0-2 (0-2) /HPF Urine Bacteria None Seen (None Seen) Hyaline Casts 0-2 (0-2) /LPF Influenza Type A (PCR) NEGATIVE (Negative) Influenza Type B (PCR) NEGATIVE (Negative) RSV RNA Qual (PCR) NEGATIVE (Negative) SARS-CoV-2 RNA (RT-PCR) NEGATIVE (Negative) 09/02/24 09/02/24 Range/Units 20:42 22:53 WBC (4.8-10.8) X10*3/uL RBC (4.20-5.50) X10*6/uL Hgb (12.0-16.0) g/dl Hct (37.0-47.0) % MCV (80.0-98.0) fL MCH (27.0-33.0) pg MCHC (31.0-35.0) g/dl RDW (11.0-16.0) % Plt Count (160-400) X10*3/uL MPV (9.4-12.3) fL Immature Gran % (Auto) (0.0-0.4) % Neut % (Auto) (45-73) % Lymph % (Auto) (20-40) % Roberts % (Auto) (2-11) % Eos % (Auto) (0-4) % Baso % (Auto) (0-2) % Lymph # (Auto) (1.2-4.9) X10*3/uL Roberts # (Auto) (0.1-1.2) X10*3/uL Eos # (Auto) (0.0-0.4) X10*3/uL Baso # (Auto) (0.0-0.2) X10*3/uL Abs Immat Gran (auto) (0.00-0.03) X10*3/uL Absolute Neuts (auto) (2.0-8.3) x10*3/uL Absolute Nucleated RBC (0.0-0.012) X10*3/uL Nucleated RBC % (auto) (0.0-0.2) /100WBC ESR (0-20) MM/HR Sodium (135-145) mmol/L Potassium (3.3-5.1) mmol/L Chloride (96-108) mmol/L Carbon Dioxide (22-29) mmol/L Anion Gap (12-20) BUN (9-16) mg/dL Creatinine (0.5-1.4) mg/dL Estim Creat Clear Calc Estimated GFR Random Glucose (60-115) mg/dL Lactic Acid 0.7 (0.5-2.0) mmol/L Calcium (8.4-10.2) mg/dL Total Bilirubin (0.0-1.0) mg/dL AST (5-31) U/L ALT (0-31) U/L Alkaline Phosphatase (39-117) U/L Troponin I High Sens 9.1 (<3.5-17.0) ng/L C-Reactive Protein (< or = 0.50) mg/dL Total Protein (6.5-8.0) g/dL Albumin (3.5-5.0) g/dL Urine Color Urine Appearance Urine pH (5.0-9.0) Ur Specific [place] (1.005-1.025) Urine Protein (Neg-Trace) mg/dL Urine Glucose (UA) (Negative) mg/dL Urine Ketones (Negative) mg/dL Urine Blood (Negative) Urine Nitrite (Negative) Ur Leukocyte Esterase (Negative) Urine RBC (0-2) /HPF Urine WBC (0-5) /HPF Ur Squamous Epith Cells (0-2) /HPF Urine Bacteria (None Seen) Hyaline Casts (0-2) /LPF Influenza Type A (PCR) (Negative) Influenza Type B (PCR) (Negative) RSV RNA Qual (PCR) (Negative) SARS-CoV-2 RNA (RT-PCR) (Negative) Independent Interpretation I performed an independent interpretation of an: EKG and Plain X-Ray (normal ) Interpretation: Rate: 93 Rhythm: NSR [place]: left, LVH Normal P waves. Normal CRUZ. Normal QRS complex. ST T wave : no AGUILAR has inverted t waves I, aVL, V4-V6 which I suspect as a LVH repolarization abnormality qTC: 472 prior studies: no priorr The study has been interpreted contemporaneously by me. . Radiology Impression Discussion of test interpretation with radiology: I have reviewed the radiologist's reading. External Record Review External record reviewed: Outpatient record Prescription Management I considered prescription management with: Antibiotic Discharge Plan Discharge Clinical Impression: Acute viral syndrome Patient Disposition: Home, Self-Care Instructions: Viral Syndrome (ED) Additional Instructions: I am concerned for a tick borne illness. You have a lower than normal WBC count at 3.4, platelets lower at 103, your liver enzymes are also elevated AST at 47 and ALT 44 (minor elevation) your lyme panel and tick borne panel are pending we will call you with positive results you need to have repeat labs on of your CBC and liver panel On doxycycline, do not take pills immediately before going to bed and swallow pills with plenty of water. Avoid direct sunlight, iron, antacids, and Pepto Bismol. Call your provider if you develop new ringing in your ears, new problems hearing, dizziness, difficulty swallowing, rash, abdominal discomfort, nausea, or diarrhea.? YOUR EKG IS ABNORMAL BUT IT APPEARS OLD YOU HAVE NORMAL HEART ENZYMES MAKE SURE YOU DOCTOR FOLLOWS THIS IT APPEARS TO BE LVH ON EKG RETURN FOR ANY WORSENING SYMPTOMS OR CONCERNS. WE WILL CALL YOU WITH POSITIVE RESULT IN 2 TO 3 DAYS OKAY TO TAKE MOTRIN 400MG EVERY 6 HOURS FOR FEVER, WOULD AVOID TYLENOL UNTIL LIVER ENZYMES ARE RECHECKED avoid aspirin Prescriptions: New doxycycline hyclate 100 mg capsule 100 mg PO BID 21 Days Qty: 42 0RF No Action rizatriptan 5 mg tablet See Rx Instructions PO .COMPLEX Qty: 10 0RF Rx Instructions: take 1 tablet at onset of headache; if no relief, may repeat 1 tablet after at least 2 hrs PO timolol maleate 0.25 % drops 1 drp ophthalmic (eye) DAILY Qty: 5 0RF Print Language: Egyptian
[2024-09-02 20:06] LABS: Hematocrit 38.3 % (37.0-47.0); Hemoglobin 13.4 g/dl (12.0-16.0); Imm Gran Abs Auto 0.01 X10*3/uL (0.00-0.03); Imm Gran Pct Auto 0.3 % (0.0-0.4); Lymphocytes Absolute Auto 0.5 X10*3/uL (1.2-4.9); Lymphocytes Percent Auto 14.5 % (20-40); MANUAL DIFF FLAG NO; Mean Corpuscular Volume 85.7 fL (80.0-98.0); Mean Platelet Volume 9.8 fL (9.4-12.3); Monocytes Absolute Auto 0.4 X10*3/uL (0.1-1.2); Monocytes Percent Auto 11.2 % (2-11); Neutrophils Absolute Auto 2.5 x10*3/uL (2.0-8.3); Platelet Count 103 X10*3/uL (160-400); Red Blood Count 4.47 X10*6/uL (4.20-5.50); Red Cell Distribution Width 13.6 % (11.0-16.0); White Blood Count 3.4 X10*3/uL (4.8-10.8)
[2024-09-02 20:28] LABS: Alanine Aminotransferase 44 U/L (0-31); Albumin Level 4.3 g/dL (3.5-5.0); Alkaline Phosphatase 120 U/L (39-117); Anion Gap 15 (12-20); Aspartate Amino Transferase 47 U/L (5-31); Bilirubin Total 0.9 mg/dL (0.0-1.0); Blood Urea Nitrogen 18 mg/dL (9-16); C Reactive Protein 4.16 mg/dL (< or = 0.50); Calcium 8.9 mg/dL (8.4-10.2); Carbon Dioxide 23 mmol/L (22-29); Chloride 105 mmol/L (96-108); Creatinine Clr Calc Pharmacy 83.1; Estimated Glomerular Filt Rate > 60; Glucose Random 112 mg/dL (60-115); Potassium 3.9 mmol/L (3.3-5.1); Sodium 139 mmol/L (135-145); Total Protein 6.7 g/dL (6.5-8.0)
--- OUTSIDE RECORDS SUMMARY | 2024-09-02 20:29 | XMS_ITS | Patient Health Record ---
Author Organization [facility] Address [address] [place] [address] Care Team Providers Care Surgical Rn Name Role Phone Kirstie Cedillo MD Primary Care Provider Mark Contreras Unavailable [phone] Allergies Allergen (clinical drug ingredient) Drug/Non Drug Allergy documented on EMR Reaction Allergy Type Onset Date Status Penicillin rash, as a teen Drug Allergy Active Reason For Referral No Information Medications Medication SIG (Take, Route, Frequency, Duration) Notes Start Date End Date Status Timolol Maleate 0.5 % 1 drop into affect ed eye Ophthalmic Once a day Active Rizatriptan Benzoate 10 MG 1 tablet Oral ly Once a day for 1 day(s) Active Social History Tobacco Use: Social History Observation Description Date Details (start date - stop date) Never Smoker NA - NA Tobacco Use/Smoking Question Answer Notes Are you a: nonsmoker Additional Findings: Tobacco Non-User Current no n-smoker Alcohol Screen Question Answer Notes Did you have a drink containing alcohol in the p ast year? No Points 0 Interpretation Negative Tobacco use other than smoking: Question Answer Notes Are you an other tobacco user? No Problems Problem Type SNOMED Code ICD Code Onset Dates Problem Status W/U Status Risk Notes Problem [id number] Neuritis of right foot (G57.91) Active confirmed Plan Of Treatment Pending Test Test Name Order Date X ray : Foot, right 3V 05/17/2022 Insurance Providers Payer Name Payer Address Payer Phone Subscriber Number Group Number Insured Name Patient Relationship to Insured Coverage Start Date Coverage End Date Medicare National Govt S[employer] [address] [place] [address] [id number] Jessica Salazar Self - [facility] [address] [place] [address] [id number] Jessica Salazar Self - patient is the insured Medical (General) History Medical History History ICD Code Headaches/Migraines Numbness head tremor Surgical History Surgery Date(Month/Year) wisdom teeth extraction 1976 hemorroids 1986 m[facility]s surgery 2017 root canal 2020
[2024-09-02 20:30] LABS: Appearance Urine Clear; Color Urine Dark Yellow; Glucose Urine UA Negative (Negative); Leukocyte Esterase Urine Negative (Negative); Nitrite Urine Negative (Negative); PH 5.5 (5.0-9.0); UMIC TRIGGER UACC YES; Urine Blood Trace (Negative); Urine Ketones 40 mg/dL (Negative); Urine Protein 30 (1+) mg/dL (Neg-Trace)
[2024-09-02 20:35] LABS: Bacteria Urine None Seen (None Seen); Hyaline Casts Urine 0-2 /LPF (0-2); Squamous Epithelial Cell Urine 0-2 /HPF (0-2); WBC Urine 0-5 /HPF (0-5)
[2024-09-02 20:42] LABS: Erythrocyte Sedimentation Rate 14 MM/HR (0-20)
[2024-09-02 20:43] LABS: Influenza A PCR NEGATIVE (Negative); Influenza B PCR NEGATIVE (Negative); Resp Syncy Virus RNA Qual PCR NEGATIVE (Negative); SARS COV2 PCR INHOUSE NEGATIVE (Negative)
[2024-09-02] MEDS: Lactated Ringers 1,000 ML 999 ML IV (20:44)
[2024-09-02] MEDS: cefTRIAXone sodium 1 GM VIAL IVPUSH (20:51)
[2024-09-02] MEDS: Acetaminophen 1,000 MG/100 ML PIGGYBACK 400 MG IV (20:51)
--- NOTE | 2024-09-02 20:55 | ECG_ITS ---
Test Reason : LYME DS Blood Pressure : */* mmHG Vent. Rate : 93 BPM Atrial Rate : 93 BPM P-R Int : 144 ms QRS Dur : 102 ms QT Int : 380 ms P-R-T Axes : -8 -9 160 degrees QTcB Int : 472 ms Normal sinus rhythm Incomplete right bundle branch block Left ventricular hypertrophy with repolarization abnormality ( R in aVL , Sokolow-Landis , Benton product , Romhilt-Torres ) Cannot rule out Septal infarct , age undetermined Abnormal ECG No previous ECGs available Referred By: Rita Sharif Electronically Signed By: Valentino Mora
[2024-09-02 21:06] LABS: Lactic Acid 0.7 mmol/L (0.5-2.0)
[2024-09-02 21:27] LABS: Troponin-I High Sensitivity 7.9 ng/L (<3.5-17.0)
[2024-09-02 23:23] LABS: Troponin-I High Sensitivity 9.1 ng/L (<3.5-17.0)
[2024-09-03 00:06] VITALS: BP 142/82; PULSE 78; RESP 17; TEMP 37.4; O2SAT 99
--- NOTE | 2024-09-03 07:55 | PC.NURSE ---
late entry- BP @ 2209- 131/80 and BP @ 2224- 121/64.
[2024-09-05 13:13] LABS: A. Phagocytphilium DNA,RT-PCR NOT DETECTED (NOT DETECTED); Babesia Microti DNA, RT-PCR NOT DETECTED (NOT DETECTED); Borrelia Miyamotoi,DNA RT-PCR NOT DETECTED (NOT DETECTED); E.Chaffeensis DNA RT-PCR NOT DETECTED (NOT DETECTED); Lyme(Borrelia ssp)DNA RT-PCR DETECTED (NOT DETECTED)
== END 2024-09-03 00:08 | disposition home or self-care (01) ==
PROVIDERS: Physician Assistant; Emergency Provider Emergency Medicine; PCP Internal Medicine
DX: B34.9 Viral infection, unspecified (principal); A69.20 Lyme disease, unspecified; R50.9 Fever, unspecified; M54.2 Cervicalgia; Z03.818 Encounter for observation for suspected exposure to other biological agents ruled out; Z79.899 Other long term (current) drug therapy
CPT/HCPCS: 0241U; 36415; 71045; 80053; 81001; 83605; 84484; 85025; 85652; 86140; 86617; 86618; 87040; 87468; 87469; 87478; 87484; 87798; 93005; 96361; 96374; 96375; 99285; J0131; J0696; J7120

== ENCOUNTER → 2024-09-02 20:24 | Outpatient (BNV) | payer MEDICARE, SELFPAY | PROVIDERS: Emergency Provider Emergency Medicine; PCP Internal Medicine; Visit Provider Student in an Organized Health Care Education/Training Program | DX: R05.9 Cough, unspecified (principal) | CPT/HCPCS: 71045 ==

== ENCOUNTER → 2024-09-02 20:55 | Outpatient (BNV) | payer MEDICARE, SELFPAY | PROVIDERS: Emergency Provider Emergency Medicine; PCP Internal Medicine; Visit Provider Internal Medicine Cardiovascular Disease | DX: I45.10 Unspecified right bundle-branch block (principal); I51.7 Cardiomegaly | CPT/HCPCS: 93010 ==

== ENCOUNTER 2024-09-06 09:46 | Outpatient (REF) | payer MEDICARE, SELFPAY ==
[2024-09-06 10:09] LABS: MANUAL DIFF FLAG NO
[2024-09-06 10:47] LABS: Basophils Percent Auto 0.6 % (0-2); Hematocrit 42.9 % (37.0-47.0); Hemoglobin 14.6 g/dl (12.0-16.0); Lymphocytes Absolute Auto 1.4 X10*3/uL (1.2-4.9); Lymphocytes Percent Auto 41.5 % (20-40); Mean Corpuscular Hemoglobin 28.8 pg (27.0-33.0); Mean Corpuscular Volume 84.6 fL (80.0-98.0); Mean Platelet Volume 10.6 fL (9.4-12.3); Monocytes Absolute Auto 0.3 X10*3/uL (0.1-1.2); Monocytes Percent Auto 9.5 % (2-11); Neutrophils Absolute Auto 1.6 x10*3/uL (2.0-8.3); Neutrophils Percent Auto 48.4 % (45-73); Platelet Count 143 X10*3/uL (160-400); Red Blood Count 5.07 X10*6/uL (4.20-5.50); Red Cell Distribution Width 13.1 % (11.0-16.0); White Blood Count 3.4 X10*3/uL (4.8-10.8)
[2024-09-06 11:29] LABS: Alanine Aminotransferase 45 U/L (0-31); Albumin Level 4.2 g/dL (3.5-5.0); Alkaline Phosphatase 135 U/L (39-117); Anion Gap 15 (12-20); Aspartate Amino Transferase 52 U/L (5-31); Bilirubin Total 0.5 mg/dL (0.0-1.0); Blood Urea Nitrogen 11 mg/dL (9-16); Calcium 9.5 mg/dL (8.4-10.2); Carbon Dioxide 28 mmol/L (22-29); Chloride 98 mmol/L (96-108); Estimated Glomerular Filt Rate > 60; Glucose Fasting 142 mg/dL (60-99); Potassium 3.7 mmol/L (3.3-5.1); Sodium 137 mmol/L (135-145); Total Protein 6.9 g/dL (6.5-8.0)
== END 2024-09-06 09:47 | disposition home or self-care (01) ==
LOC: HO.LAB 09:46
PROVIDERS: PCP Internal Medicine; Visit Provider Internal Medicine
DX: B34.9 Viral infection, unspecified (principal)
CPT/HCPCS: 36415; 80053; 85025

== ENCOUNTER 2024-09-12 10:47 | Outpatient (AMB) | payer MEDICARE, SELFPAY ==
[2024-09-12 10:54] VITALS: BP 120/82; PULSE 64; RESP 18; TEMP 36.7; O2SAT 100; BMI 22.7
--- NOTE | 2024-09-12 10:54 | MHC.PC.OV ---
Vital Signs 09/12/24 10:54 Height 5 ft 10 in Weight 158 lb BMI 22.7 BP 120/82 Blood Pressure Location Lt brachial Position Sitting Respiration 18 Pulse 64 Pulse Source Pulse Oximeter Temp 98.0 F Temp Source Oral Pulse Oximetry (%) 100 Oxygen Delivery Method Room Air Intake Visit Reasons: [facility] [place] Intake Note: Pt is here today for ER follow up visit. Allergies Penicillins Adverse Reaction (Unknown, Verified 09/12/24 11:38) Rash Medication List - Last Reconciled 09/12/24 by Kirstie Cedillo MD doxycycline hyclate 100 mg PO BID 21 days rizatriptan take 1 tablet at onset of headache; if no relief, may repeat 1 tablet after at least 2 hrs PO timolol maleate 0.25% 1 drp ophthalmic (eye) DAILY Tobacco use date assessed: 09/12/24 Fall risk assessment: No Falls in past year Last assessed Fall Risk: 09/12/24 Dental Screening Dental Screen Date: 09/12/24 Did you have a dental visit in the last 12 months?: Yes Did you have a dental problem in the last 6 months where you did not have access to dental care?: No Was dental information given to patient?: Patient has dentist HPI [facility] [place] HPI Details Pt for f/u ER visit for for fever, ARREDONDO, neck pain. The workup was consistent with acute Lyme disease patient has been taking doxycycline and is feeling better. 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, Housing: House Patient Tobacco Use Status: Never used Tobacco e-Cigarette/Vaping Use: Never Used service: No Current occupational status: retired Cognitive needs: No Hearing needs: No Vision needs: Yes Questionnaire Thrive Questionnaire Date Thrive assessed: 09/12/24 I am a: Patient What is your living situation today?: I have a steady place to live Within the past 12 months, did the food you bought not last and you didn't have the money to get more?: Never true Within the past 12 months, did you worry whether your food would run out before you got money to buy more?: Never true Do you have trouble paying for medicines?: No Do you have trouble getting transportation to medical appointments?: No Do you have trouble paying your heating and electricity bill?: No Do you have trouble taking care of your child, family member or friend?: No Do you have trouble with day-to-day activities such as bathing, preparing meals, shopping, managing finances, etc.?: No Are you interested in more education?: No Please select the resources that you would like help with: None Currently or been in a relationship where the following occur: No concerns reported THRIVE Score: 0 AUDIT C Alcohol Use Questionnaire (AUDIT-C) 3. How often do you have six or more drinks on one occasion?: Never Total Score: 0 VANE-7 AMB Questionnaire VANE-7 Date VANE - 7 assessed: 12/03/23 Source: Developed by Drs. Rocael Nieves, Melia Wilson, Mark Cullen and colleagues, with an educational sergio from [employer]. Review of Systems Const All systems reviewed & are unremarkable except as noted in HPI and below Eyes Reports no additional complaints ENT Reports no additional complaints Card Reports no additional complaints Resp Reports no additional complaints GI Reports no additional complaints Reports no additional complaints Physical exam (Primary Care) Vital Signs: Last Vital Signs Temp 98.0 F 09/12/24 10:54 Pulse 64 09/12/24 10:54 Resp 18 09/12/24 10:54 BP 120/82 09/12/24 10:54 Pulse Ox 100 09/12/24 10:54 Oxygen Delivery Method Room Air 09/12/24 10:54 BMI result Body Mass Index 22.7 Tobacco/Smoking Status: Tobacco use Status Tobacco use date assessed 09/12/24 09/12/24 11:42 Patient Tobacco Use Status Never used Tobacco 09/12/24 10:54 e-Cigarette/Vaping Use Never Used 09/12/24 10:54 Thrive Assessment: Date of Thrive Assessment Date Thrive assessed 09/12/24 09/12/24 10:54 Currently or been in a relationship where the following occur: No concerns reported Const General: no acute distress HENMT Head: Yes normal to inspection Face and sinus: Yes normal facial exam Throat: Yes posterior oropharynx normal Eyes General: appearance normal, both eyes and all related structures Resp Effort & Inspection: normal respiratory effort Auscultation: clear to auscultation bilaterally Cardio Rhythm: regular rhythm Heart sounds: S1 normal heart sound present and S2 normal heart sound present GI Inspection: Yes normal to inspection Palpation (GI): Soft to palpation Percussion: Yes normal to percussion Auscultation: normal bowel sounds Coding Level of Care Code Est Pt Level 3 (73994) Diagnoses RBBB I45.10 Acute Lyme disease A69.20 Assessment & Plan Assessment & Plan (1) RBBB: Comment: EKG showed right bundle branch block and LVH 08/2024 Code(s): I45.10 - Unspecified right bundle-branch block Category: Medical Plan: Obtain echocardiogram (2) Acute Lyme disease: Comment: 08/2024, treated with 21 days of doxycycline Code(s): A69.20 - Lyme disease, unspecified Category: Medical Plan: Continue doxycycline, repeat comprehensive panel and CBC in 2 months Orders: Orders CA echo transthoracic complete Today I45.10 - Unspecified right bundle-branch block, R03.0 - Elevated blood-pressure reading, without diagnosis of hypertension Hemoglobin A1c 2 Months R73.9 - Hyperglycemia, unspecified Comprehensive [place]. Panel Fast 2 Months I45.10 - Unspecified right bundle-branch block, R03.0 - Elevated blood-pressure reading, without diagnosis of hypertension Complete Blood Count Auto Diff 2 Months I45.10 - Unspecified right bundle-branch block, R03.0 - Elevated blood-pressure reading, without diagnosis of hypertension
--- OUTSIDE RECORDS SUMMARY | 2024-09-12 11:50 | XMS_ITS | Patient Health Record ---
Author Organization [facility] Address [address] [place] [address] Care Team Providers Care Pond Scaler Name Role Phone Kirstie Cedillo MD Primary Care Provider Mark Contreras Unavailable [phone] Allergies Allergen (clinical drug ingredient) Drug/Non Drug [...] MG 1 tablet Oral ly Once a day; Duration: 1 day(s) Active Social History Tobacco Use: [...] Problem Status W/U Status Risk Notes Problem Mononeuropathy of lower limb ([id number]) Neuritis of right foot (G57.91) Active confirmed Plan Of Treatment Pending Test Test Name Order Date X ray : Foot, right 3V 05/17/2022 Insurance Providers Payer Name Payer Address Payer Phone Subscriber Number Group Number Insured Name Patient Relationship to Insured Coverage Start Date Coverage End Date Medicare National Govt Svcs Inc [address] [place] [address] [id number] Jessica Salazar Self - patient is the insured [employer] [facility] [address] [place] [address] [id number] Jessica Salazar Self - patient is the insured Medical (General) History Medical History History ICD Code Headaches/Migraines Numbness head tremor Surgical History Surgery Date(Month/Year) wisdom teeth extraction 1977 hemorroids 1987 m[facility]s surgery 2017 root canal 2020
== END 2024-09-12 12:53 | disposition home or self-care (01) ==
LOC: HO.HMCC 10:48
PROVIDERS: PCP Internal Medicine; Visit Provider Internal Medicine
DX: I45.10 Unspecified right bundle-branch block (principal); A69.20 Lyme disease, unspecified

== ENCOUNTER → 2024-09-12 10:47 | Outpatient (BNVA) | payer MEDICARE, SELFPAY | PROVIDERS: PCP Internal Medicine; Visit Provider Internal Medicine | DX: I45.10 Unspecified right bundle-branch block (principal); A69.20 Lyme disease, unspecified | CPT/HCPCS: 99212 ==

== ENCOUNTER → 2024-10-21 10:09 | Outpatient (REF) | payer MEDICARE, SELFPAY ==
--- NOTE | 2024-10-21 10:12 | CA_ITS ---
Transthoracic Echocardiogram Patient (Last, First, Middle): Jessica Salazar, Gender: Female Date of : 1955 Age: 69 Procedure Date: 10/21/2024 Procedure Type: Transthoracic Echocardiogram Location: OP Height: 177. cm Weight: 72.58 kg BSA: 1.89 m2 Heart Rate: 63 bpm BP: 142 / 70 mmHg Delivery Route Driver: ALVARO Referring MD: Kirstie Cedillo MD Symptoms: I45.10 - Unspecified right bundle-branch block Study Quality: Adequate w/Contrast Conclusions: - The left ventricular systolic function is normal. The calculated ejection fraction is 63% by biplane method. - Pattern of left ventricular hypertrophy suggestive of apical hypertrophic cardiomyopathy. - Evidence suggests grade II (moderate) diastolic dysfunction. - The left atrium is moderately dilated. - No obvious valvular pathology seen on this study. Findings Procedure Information Contrast agent, definity, is being given per protocol without apparent complications. Left Ventricle Normal left ventricular cavity size. The left ventricular systolic function is normal. The calculated ejection fraction is 63% by biplane method. There is no evidence of regional wall motion abnormalities. Evidence suggests grade II (moderate) diastolic dysfunction. There is moderate septal asymmetric hypertrophy. Pattern of left ventricular hypertrophy suggestive of apical hypertrophic cardiomyopathy. Right Ventricle Normal right ventricular cavity size and systolic function. Atria The left atrium is moderately dilated. The right atrium is severely dilated. Aortic Valve There is a normal trileaflet aortic valve. There is no aortic valve stenosis. There is trace (trivial) aortic valve regurgitation. Mitral Valve The mitral valve appears normal. There is mild mitral valve regurgitation. There is no mitral valve stenosis. Pulmonic Valve The pulmonic valve is likely normal. Tricuspid Valve Normal tricuspid valve structure. There is mild tricuspid valve regurgitation. There is no evidence of pulmonary hypertension. Great Vessels The asc aorta and aortic arch are normal in size. Venous The inferior vena cava is dilated and collapses greater than 50% with inspiration. Pericardium/Pleural There is no evidence of pericardial effusion. Prior Study Comparison No prior study available for comparison. Recommendations, Care & Conclusions No obvious valvular pathology seen on this study. Measurements 2D Linear Measurements IVSd: 1.30 0.6-0.9/0.6-1.0 cm LVIDd: 4.89 3.9-5.3/4.2-5.9 cm LVIDd Index: 2.59 2.4-3.2/2.2-3.1 cm/m2 LVIDs: 3.10 2.0-3.6 cm LVPWd: 1.12 0.7-1.1 cm LA Diam: 4.50 2.7-3.8/3.0-4.0 cm LAIDs Index: 2.38 1.5-2.3 cm/m2 LV Mass: 284.64 67-162/88-224 g LV Mass Index: 150.60 43-95/49-115 g/m2 LVOT Diam: 2.00 3.0+(-)1.3 cm 2D Systolic Function EF 4C: 60.40 >55% EF 2C: 64.00 >55% EF BiP: 62.50 >55% Mitral Valve MV Pk E: 0.52 MV PK A: 0.45 MV Decel Time: 464.00 E/A: 1.20 E'Lateral: 6.96 E'Medial: 4.35 E/E' Med: 11.90 E/E' Lat: 7.40 PHT: 136.00 MVA PHT: 1.62 Decel [place]: 1.12 Aortic Valve AoV Pk Oswald: 1.29 AoV Mn Oswald: 0.95 AoV VTI: 0.31 AoV Pk Grad: 7.00 Aov Mn Grad: 4.00 TOM Cont.VTI: 2.21 LVOT LVOT Pk Oswald: 1.06 LVOT Mn Oswald: 0.64 LVOT VTI: 0.22 LVOT Pk Grad: 4.00 LVOT Mn Grad: 2.00 LVOT Diam: 2.00 LVOT Area: 3.14 Diastolic Function MV Pk E: 0.52 MV Pk A: 0.45 E/A: 1.20 E'Medial: 4.35 E/E' Med: 11.90 E' Laterial: 6.96 E/E' Lat: 7.40 Right Ventricle TAPSE (mm): 27.20 TVS' Oswald: 11.70 Tricuspid Valve TR Pk Oswald: 2.04 TR Pk Grad: 17.00 RA Press: 8.00 RVSP: 25.00 Great Vessels Aorta Sinus of Valsalva: 3.20 2.0-3.5 cm Ao Asc: 3.20 2.1-3.4 cm Ao Arch: 2.50 Pulmonary Valve PV Pk Oswald: 0.87 Peak PV Grad: 3.00 Updated in Other Vendor System with Status of Final Noe Black MD electronically signed on 10/22/2024 11:39:14 AM with status of Final
--- OUTSIDE RECORDS SUMMARY | 2024-10-21 10:44 | XMS_ITS | Patient Health Record ---
Author Organization [facility] Address [address] [place] [address] Care Team Providers Care Kiln Door Builder Name Role Phone Kirstie Cedillo MD Primary Care Provider Mark Contreras Unavailable [phone] Allergies Allergen (clinical drug ingredient) Drug/Non Drug [...] Risk Notes Problem Mononeuropathy of lower limb (926003975) Neuritis of right foot (G57.91) Active confirmed Plan Of Treatment Pending Test Test Name Order Date X ray : Foot, right 3V 05/17/2022 Insurance Providers Payer Name Payer Address Payer Phone Subscriber Number Group Number Insured Name Patient Relationship to Insured Coverage Start Date Coverage End Date Medicare National Govt Sv[employer] [address] [place] [address] [id number] Jessica Slaazar Self - patient is the insured Med Blue [facility] [address] [place] [address] [id number] Jessica Salazar Self - patient is the insured Medical (General) History Medical History History ICD Code Headaches/Migraines Numbness head tremor Surgical History Surgery Date(Month/Year) wisdom teeth extraction 1977 hemorroids 1987 [facility] surgery 2017 root canal 2020
== END ==
LOC: HO.CARD 10:09
PROVIDERS: PCP Internal Medicine; Visit Provider Internal Medicine
DX: I45.10 Unspecified right bundle-branch block (principal); R03.0 Elevated blood-pressure reading, without diagnosis of hypertension
CPT/HCPCS: 93306; Q9957

== ENCOUNTER → 2024-10-21 10:12 | Outpatient (BNV) | payer MEDICARE, SELFPAY | PROVIDERS: PCP Internal Medicine; Visit Provider Internal Medicine | DX: I42.2 Other hypertrophic cardiomyopathy (principal); I51.7 Cardiomegaly; I51.89 Other ill-defined heart diseases; I36.1 Nonrheumatic tricuspid (valve) insufficiency | CPT/HCPCS: 93306 ==

== ENCOUNTER 2024-12-31 13:32 | Outpatient (AMB) | payer MEDICARE, SELFPAY ==
[2024-12-31 13:34] VITALS: BP 118/76; PULSE 70; RESP 17; TEMP 36.8; O2SAT 97; BMI 23.4
--- NOTE | 2024-12-31 13:34 | AM.OFFVISMDC ---
Intake Vital Signs 12/31/24 13:34 Height 5 ft 10 in Weight 163 lb BMI 23.4 BP 118/76 Blood Pressure Location Lt brachial Position Sitting Respiration 17 Pulse 70 Pulse Source Pulse Oximeter Temp 98.3 F Temp Source Oral Pulse Oximetry (%) 97 Oxygen Delivery Method Room Air Intake Visit Reasons: awv G0438, resched Intake Note: Pt is here today for AWV. Allergies Penicillins Adverse Reaction (Unknown, Verified 12/31/24 13:40) Rash Medication List - Last Reconciled 12/31/24 by Kirstie Cedillo MD rizatriptan take 1 tablet at onset of headache; if no relief, may repeat 1 tablet after at least 2 hrs PO timolol maleate 0.25% 1 drp ophthalmic (eye) DAILY HPI awv G0438, resched HPI Details Initiated the conversation about Advanced Directives. Advanced Directives help? patients prepare for current and future decisions about their medical treatment? and place of care. Discussed with patient that it is a process where a patients? current condition and prognosis are reviewed, their wishes for information? regarding their illness are elicited, and likely medical dilemmas are presented? and options discussed. The form can be amended as needed, reviewed yearly and? make changes as needed IPPE/AWV ? year old presents? for her ? Annual? Wellness Visit, initial visit.? Medical / Social History Reviewed? Past Medical History ?Yes? . ? [place]? of Care / Care Team list updated ?Yes . ? Surgical/Hospitalization? History ?Yes . ? Current Medications? (including OTC and supplements) ?Yes . ? Family History ?Yes? . ? Tobacco? Control form ?Yes . ? AUDIT-C (Alcohol use) form? ?Yes . ? Illicit drug use in Social? History ?Yes . ? Current diagnosis of? depression? ?No ? Appropriate PHQ2/PHQ9? completed ?Yes . ? Data entered by ?Medical? Data Warehouse Manager and reviewed by provider ? Fall Risk ? Fall? History? Have you had any falls with? injury in the past year? ?No . ? Have you had two or more? falls in the past year? ?No . ? Fall Risk Assessment: ?No? falls in the past year . ? HRA filled out by? the patient, reviewed by Provider and scanned. ? IPPE/AWV ? Balance? [place]? ?Yes . ? Tandem? walk ?Yes . ? Walk and? Turn ?Yes . ? Rise from? sit to stand ?Yes . ?Vision? Corrective? lens ?Yes ? Vision? screen ? Up-to-date, has an appointment [] for vision? screening and glaucoma screening ?Hearing? Whisper? test ?pass .? Initiated the conversation about Advanced Directives. Advanced Directives help? patients prepare for current and future decisions about their medical treatment? and place of care. Discussed with patient that it is a process where a patients? current condition and prognosis are reviewed, their wishes for information? regarding their illness are elicited, and likely medical dilemmas are presented? and options discussed. The form can be amended as needed, reviewed yearly and? make changes as needed Written? Plan?Completed. See Patient? Documents. [facility] Medical History (Updated 12/31/24 @ 14:43 by Kirstie Cedillo MD) Annual physical exam Hyperglycemia Glaucoma Hypertrophic cardiomyopathy Migraine headache IBS (irritable bowel syndrome) Surgical History (Updated 12/31/24 @ 14:02 by Kirstie Cedillo MD) Hx of colonoscopy Hx of hemorrhoidectomy Family History Father Throat cancer Mother Hypertension Social History Household Members Other:: , 3 sons, retired libriarian, moved from [place] exercise5 x a week, Housing: House Patient Tobacco Use Status: Never used Tobacco e-Cigarette/Vaping Use: Never Used service: No Current occupational status: retired Cognitive needs: No Hearing needs: No Vision needs: Yes Questionnaire Medicare Wellness Checkup What [age] 65-70 What gender do you identify with?: female During the past 4 weeks, how much have you been bothered by emotional problems such as feeling anxious, depressed, irritable, sad or downhearted, and blue?: slightly During the past 4 weeks, has your physical & emotional health limited your social activities with family, friends, neighbors, or groups?: not at all During the past 4 weeks, how much bodily pain have you generally had?: very mild pain During the past 4 weeks, was someone available to help you if you needed & wanted help?: yes, as much as I wanted During the past 4 weeks, what was the hardest physical activity you could do for at least 2 minutes?: heavy Can you get to places out of walking distance without help? (For eg., can you travel alone on buses, taxis or drive your car?): Yes Can you go shopping for groceries or clothes without someone's help?: Yes Can you prepare your own meals?: Yes Can you do your housework without help?: Yes Because of any health problems, do you need the help of another person with your personal care needs such as eating, bathing, dressing or getting around the house?: No Can you handle your own money without help?: Yes During the past 4 weeks, how would you rate your health in general?: very good During the past 4 weeks how have things been going for you?: pretty well Are you having difficulties driving your car?: no Do you always fasten your seat belt when you are in a car?: yes, usually During past 4 weeks, have you been bothered by the following: never: Falling or dizzy when standing up, Sexual problems?, Trouble eating well?, Teeth or denture problems? and Problems using the telephone? and seldom: Tiredness or fatigue? Have you fallen 2 or more times in the past year?: No Are you afraid of falling?: No Are you a smoker?: no During the past 4 weeks, how many drinks of wine, beer, or other alcoholic beverages did you have?: no alcohol at all Do you exercise for about 20 minutes 3 or more times a week?: yes, most of the time Have you been given information to help with the following?: yes: Hazards in your house that might hurt you? and yes: Keeping track of your medications? How often do you have trouble taking medicines the way you have been told to take them?: I always take medicine as prescribed How confident are you that you can control & manage most of your health problems?: very confident What is your race?: White Mini Mental State Exam (MMSE) Orientation What is the (year) (season) (date) (day) (month)?: year, season, date, day and month Where are we (state) (county) (town or city) (hospital) (floor)?: state, county, town or city, hospital/clinic and floor Registration Name of 3 unrelated objects clearly and slowly, then ask patient to repeat all 3 of them. (1st repeat determines score. Make sure they can repeat all three): object 1, object 2 and object 3 Attention & Calculation (CHOOSE ONE) Spell WORLD backwards (DLROW): 5 letters Recall Ask patient to repeat the 3 items from question #3.: object 1, object 2 and object 3 Language Show patient a wristwatch & ask what it is. Repeat for pencil.: watch and pencil Ask the patient to repeat the phrase 'No ifs, ands, or buts' after you.: correct Ask the patient to 'take a piece of paper with their right hand' 'fold paper in half' 'place paper on floor': take paper in right hand, fold paper in half and place paper on floor Print the sentence 'CLOSE YOUR EYES' on a piece. If patient actually closes eyes then score.: followed written direction Give patient a blank piece of paper & ask to write a sentence. Score if it contains a noun & verb.: sentence contains subject and verb Score Score: 29 Activity of Daily Living Bathing - sponge bath, tub bath or shower: receives no assistance (gets in/out by self, if usual bathing means Dressing - getting clothes from closets & drawers, including inner/outer garments & fasteners.: gets clothes & gets completely dressed without help Toileting - going to the 'toilet room' for urine/bowel elimination & cleaning self/arranging clothes: goes to toilet room, cleans self, arranges clothes without help Transfer: moves in & out of bed and chair without help (may use support object) Continence: controls urination/bowel movements completely by self Feeding: feeds self without help Total Score: 0 Information obtained from: patient Using telephone: independent Traveling: independent Shopping: independent Preparing meals: independent Housework: independent Taking medicine: independent Managing money: independent PHQ-9 Over the last 2 weeks, how often have you been bothered by any of the following problems? 1. Little interest or pleasure in doing things: more than half the days 2. Feeling down, depressed, or hopeless: more than half the days 3. Trouble falling or staying asleep, or sleeping too much: several days 4. Feeling tired or having little energy: several days 5. Poor appetite or overeating: several days 6. Feeling bad about yourself - or that you are a failure or have let yourself or your family down: several days 7. Trouble concentrating on things, such as reading the newspaper or watching television: not at all 8. Moving or speaking so slowly that other people could have noticed. Or the opposite - being so fidgety or restless that you have been moving around a lot more than usual: not at all 9. Thoughts that you would be better off or of hurting yourself in some way: not at all Total score: 8 Depression Screening Interpretation: Negative Depression Screening Done: Yes 13626 - PHQ-9 Billing: Yes Source: Developed by DrsJessica Nieves, Melia Wilson, Mark Cullen and colleagues, with an educational sergio from [employer]. Review of Systems Const All systems reviewed & are unremarkable except as noted in HPI and below Eyes Reports no additional complaints ENT Reports no additional complaints Card Reports no additional complaints Resp Reports no additional complaints GI Reports no additional complaints Reports no additional complaints Physical Exam Vital Signs: Last Vital Signs Temp 98.3 F 12/31/24 13:34 Pulse 70 12/31/24 13:34 Resp 17 12/31/24 13:34 BP 118/76 12/31/24 13:34 Pulse Ox 97 12/31/24 13:34 Oxygen Delivery Method Room Air 12/31/24 13:34 BMI result Body Mass Index 23.4 Const General: no acute distress HEENT Head: Yes normal to inspection Ears: TM's normal bilaterally Eyes General: appearance normal, both eyes and all related structures Neck Neck: Yes no lymphadenopathy and Yes supple Resp Effort & Inspection: normal respiratory effort Auscultation: clear to auscultation bilaterally Cardio Rhythm: regular rhythm Heart sounds: S1 normal heart sound present and S2 normal heart sound present GI Inspection: Yes normal to inspection Palpation (GI): Soft to palpation Percussion: Yes normal to percussion Auscultation: normal bowel sounds Extrem General: Yes no clubbing, cyanosis or edema Assessment & Plan Assessment & Plan (1) Annual physical exam: Comment: DEXA normal 04/2023 Code(s): Z00.00 - Encounter for general adult medical examination without abnormal findings Plan: Well-balanced diet regular physical activity discussed with the patient. She is up-to-date with the mammogram [facility] and colonoscopy (2) HTN (hypertension): Code(s): I10 - Essential (primary) hypertension Plan: Continue losartan , patient will return for fasting blood work (3) Hypertrophic cardiomyopathy: Comment: ECHO 10/2024 ejection fraction 60%, apical hypertrophic cardiomyopathy, grade 2 diastolic dysfunction left atrial enlargement normal valves, seen by [facility] cardiology, started on Losartan 25 mg, heart MR at [facility] 12/2024 Code(s): I42.2 - Other hypertrophic cardiomyopathy Plan: Continue losartan follow-up with [facility] Cardiology in February Orders: Orders Hemoglobin A1c Today E55.9 - Vitamin D deficiency, unspecified, I10 - Essential (primary) hypertension, R73.9 - Hyperglycemia, unspecified Microalbumin, Random (w Creat) Today E55.9 - Vitamin D deficiency, unspecified, I10 - Essential (primary) hypertension, R73.9 - Hyperglycemia, unspecified Vitamin D 25-OH Total Today E55.9 - Vitamin D deficiency, unspecified Complete Blood Count Auto Diff 1 Year E55.9 - Vitamin D deficiency, unspecified, I10 - Essential (primary) hypertension, I42.2 - Other hypertrophic cardiomyopathy TSH reflex Free T4 Today E55.9 - Vitamin D deficiency, unspecified, I10 - Essential (primary) hypertension, I42.2 - Other hypertrophic cardiomyopathy UA w Microscopic 1 Year E55.9 - Vitamin D deficiency, unspecified, I10 - Essential (primary) hypertension, I42.2 - Other hypertrophic cardiomyopathy Comprehensive [place]. Panel Fast Today E55.9 - Vitamin D deficiency, unspecified, I10 - Essential (primary) hypertension, R73.9 - Hyperglycemia, unspecified Complete Blood Count Auto Diff Today E55.9 - Vitamin D deficiency, unspecified, I10 - Essential (primary) hypertension, R73.9 - Hyperglycemia, unspecified Lipid Panel Today E55.9 - Vitamin D deficiency, unspecified, I10 - Essential (primary) hypertension, R73.9 - Hyperglycemia, unspecified UA w Microscopic Today E55.9 - Vitamin D deficiency, unspecified, I10 - Essential (primary) hypertension, R73.9 - Hyperglycemia, unspecified Vitamin B12 and Folate Today E55.9 - Vitamin D deficiency, unspecified Comprehensive [place]. Panel Fast 1 Year E55.9 - Vitamin D deficiency, unspecified, I10 - Essential (primary) hypertension, I42.2 - Other hypertrophic cardiomyopathy Hemoglobin A1c 1 Year E55.9 - Vitamin D deficiency, unspecified, I10 - Essential (primary) hypertension, I42.2 - Other hypertrophic cardiomyopathy Lipid Panel 1 Year E55.9 - Vitamin D deficiency, unspecified, I10 - Essential (primary) hypertension, I42.2 - Other hypertrophic cardiomyopathy Medications: New losartan 25 mg PO DAILY 90 tabs 0RF Quality Reporting (2019) Depression/Bipolar (159/160/161/177) PHQ-9: Total score: 8 Coding Level of Care Code Medicare Subsequent (G0439) Diagnoses Annual physical exam Z00.00 HTN (hypertension) I10 Hypertrophic cardiomyopathy I42.2 CPT Codes Advance Care Planning - Advance Care Planning discussion: On file, no changes ([id number]) Advance Care Planning - Time spent: 1-15 minutes, on File ([id number]) Additional Codes PHQ-9 - 72185 - PHQ-9 Billing: Yes ([id number]) Advance Care Planning Advance Care Planning discussion: On file, no changes Forms completed: Health Care Proxy Time spent: 1-15 minutes, on File
--- OUTSIDE RECORDS SUMMARY | 2024-12-31 17:14 | XMS_ITS | Patient Health Record ---
Author Organization [facility] Address [address] [place] [address] Care Team Providers Care Quality Assurance Auditor Name Role Phone Kirstie Cedillo MD Primary Care Provider Mark Contreras Unavailable [phone] Allergies Allergen (clinical drug ingredient) Drug/Non Drug [...] Risk Notes Problem Mononeuropathy of lower limb (571290349) Neuritis of right foot (G57.91) Active confirmed Plan Of Treatment Pending Test Test Name Order Date X ray : Foot, right 3V 05/17/2022 Insurance Providers Payer Name Payer Address Payer Phone Subscriber Number Group Number Insured Name Patient Relationship to Insured Coverage Start Date Coverage End Date Medicare National Govt Svcs Inc [address] [place] [address] [id number] Jessica Salazar Self - patient is the insured Med Blue [facility] [address] [place] [address] [id number] Jessica Salazar Self - patient is the insured Medical (General) History Medical History History ICD Code Headaches/Migraines Numbness head tremor Surgical History Surgery Date(Month/Year) wisdom teeth extraction 1977 hemorroids 1987 [facility] surgery 2017 root canal 2020
--- OUTSIDE RECORDS SUMMARY | 2024-12-31 17:14 | XMS_ITS | Data Portability ---
Author Organization PEDRO ABERNATHY MD [facility], Main Office Address [address] [place] [address] Assessment No assessment recorded. Plan of Treatment Reminders Order Date Submit Date Provider Last Modified By Organization Details Last Modified Time Details Appointments None record ed. Lab None record ed. Referral None record ed. Procedures None record ed. Surgeries None record ed. Imaging None record ed. Medication Orders None record ed. Patient TargetsNo targets recorded. Patient InstructionsNo instructions recorded. Reason for Referral None Reported. Medical Equipment None Reported. Allergies Allergen ID Allergen Name Allergen Category Reaction Reaction Severity Criticality Documentation Date Start Date Code Code System Note Provider Name and Address Organization Details Recorded Time 1343 Product containin g penicilli n (product) medicatio n Not available Not available Not available 10/16/2024 55099 [id number] SNOMED Dee Dee taylor, PEDRO ESCOBAR MD [facility] 13:25:46 Medications Name Sig Start Date Stop Date Status Note LastModified by Organization Details LastModified Time doxycycline hyclate 100 mg capsule TAKE 1 CAPSULE ORALLY 2 TIMES A DAY FOR 21 DAYS 10/16 completed Not Available Not Available Not Available divalproex 250 mg tablet,aarti yed release TAKE 1 TABLET BY MOUTH TWICE A DAY FOR 5 DAYS active Not Available Not Available No t Available divalproex 500 mg tablet,aarti yed release TAKE 1 TABLET BY MOUTH TWICE A DAY FOR 3 DAYS active Not Available Not Available No t Available rizatriptan 10 mg disintegrat ing tablet PLEASE SEE ATTACHED FOR DETAILED DIRECTION S active Not Available Not Available No t Available timolol maleate 0.5 % eye drops INSTILL 1 DROP INTO BOTH EYES TWICE A DAY active Not Available Not Available No t Available Vitals Date Recorded Body height Heart rate Body temperature Body mass index (BMI) Body weight Systolic And Diastolic Provider Name and Address Organization Details Last Updated DateTime 5 177.8 cm 69 /min 97.7 [degF] 23 kg/m2 39681.7 8 g 135/82 mm[Hg] Dee Dee ESCOBAR MD [facility] 5 13:10:16 Social History None recorded. Functional Status None recorded. Mental Status None recorded. Family History Nothing Reported. Medical History No medical history recorded. Gynecological HistoryNo gynecological history recorded. Obstetrics History GPAL:G 0 P 0 0 0 0 Past Encounters Encounter ID Performer Location Encounter Start Date Encounter Closed Date Diagnosis/Indication Diagnosis SNOMED-CT Code Diagnosis ICD10 Code Diagnosis IMO Codes Diagnosis Note [id number] Jose Escobar MD Main Office [address] [place] [id number] 10/16/2024 13:09:08 10/16/2024 13:34:47 Lyme disease 62646589 A69.20 [id number] treated with Ceftriaxon e 09/02/24 followed by 21 days of DOxycyclin e: completed tx about 3 weeks ago.negati ve co-infecti on panelsx resolved.L yme Disease and tick borne infections reviewed, management and prevention .Lyme prevention reviewed including the use of Doxycyclin e with tick exposure; the use of long sleeve; insect repellent. tick checks qd x 3 days, tick analysis among other.plan of care reviewed.q uestions and concerns addressedR eturn as needed Health Concerns Section Related Observation LastModified by Organization Detai ls LastModified Time None Recorded Concern Status LastModified by Organization Details LastModified Time None Recorded Advance Directives Directive None Recorded Payers Insurance Date Sequence Insurance Name Policy Number Policy Fischer Covered Member ID Fischer Member ID Guarantor Name 10/17/2024 2 [place] [id number] Jessica Salazar [id number] Jessica Salazar 10/16/2024 1 [place] [employer] Jessica Salazar [id number] Jessica Salazar Notes Date Note Type Note Provider Name and Address Organization Details Recorded Time 10/16/2024 text/html ROS as noted in the HPI female [facility] her clothing 2 weeks prior to sx development while hiking.sx fever, headache, body aches, sore neck; no rash., anorexia,very tired. 09/02/24 borrelia DNA detected; co-infection negative for ehrlichia, babesia, anaplasma; WBC 3.4 L; plt 103 L; GFR 83; AST 47; ALT 44; neg RSV; neg fly; neg COVID on 10/02/24tx w ceftriaxone IV, followed by 21 days of doxycycline which she completed about 3 weeks agoall her sx are resolved. feel well no other concerns.hx migraines, IBSno allergiespt consented to have son in her room. Jose Escobar MD [address] [place] [address], [phone], [facility] - JOSE ESCOBAR MD [facility] 10/16/2024 13:49:15 OBGyn Episode No OBEpisode recorded.
== END 2024-12-31 14:13 | disposition home or self-care (01) ==
LOC: HO.HMCC 13:33
PROVIDERS: PCP Internal Medicine; Visit Provider Internal Medicine
DX: Z00.00 Encounter for general adult medical examination without abnormal findings (principal); I10 Essential (primary) hypertension; I42.2 Other hypertrophic cardiomyopathy

== ENCOUNTER → 2024-12-31 13:32 | Outpatient (BNVA) | payer MEDICARE, SELFPAY | PROVIDERS: PCP Internal Medicine; Visit Provider Internal Medicine | DX: Z00.00 Encounter for general adult medical examination without abnormal findings (principal); I10 Essential (primary) hypertension; I42.2 Other hypertrophic cardiomyopathy; E55.9 Vitamin D deficiency, unspecified | CPT/HCPCS: 96127 ==

== ENCOUNTER 2025-01-02 10:07 | Outpatient (REF) | payer MEDICARE, SELFPAY ==
--- OUTSIDE RECORDS SUMMARY | 2025-01-02 11:56 | XMS_ITS | Patient Health Record ---
Author Organization [facility] Address [address] [place] [address] Care Team Providers Care Basket Weaver Name Role Phone Kirstie Cedillo MD Primary Care Provider Mark Contreras Unavailable [phone] Allergies Allergen (clinical drug ingredient) Drug/Non Drug [...] Risk Notes Problem Mononeuropathy of lower limb (051390588) Neuritis of right foot (G57.91) Active confirmed Plan Of Treatment Pending Test Test Name Order Date X ray : Foot, right 3V 05/17/2022 Insurance Providers Payer Name Payer Address Payer Phone Subscriber Number Group Number Insured Name Patient Relationship to Insured Coverage Start Date Coverage End Date Medicare [employer] [address] [place] [address] [id number] Jessica Salazar Self - patient is the insured Med [facility] [address] [place] [address] [phone] [id number] Jessica Salazar Self - patient is the insured Medical (General) History Medical History History ICD Code Headaches/Migraines Numbness head tremor Surgical History Surgery Date(Month/Year) wisdom teeth extraction 1977 hemorroids 1987 [facility] surgery 2017 root canal 2020
[2025-01-02 12:59] LABS: MANUAL DIFF FLAG NO
[2025-01-02 13:13] LABS: Appearance Urine Clear; Glucose Urine UA Negative (Negative); PH 6.5 (5.0-9.0); Specific Gravity - Urine 1.010 (1.005-1.025)
[2025-01-02 13:56] LABS: Hematocrit 41.3 % (37.0-47.0); Hemoglobin 13.4 g/dl (12.0-16.0); Imm Gran Abs Auto 0.02 X10*3/uL (0.00-0.03); Imm Gran Pct Auto 0.5 % (0.0-0.4); Lymphocytes Absolute Auto 2.1 X10*3/uL (1.2-4.9); Mean Corpuscular HGB Conc 32.4 g/dl (31.0-35.0); Mean Corpuscular Hemoglobin 29.6 pg (27.0-33.0); Mean Corpuscular Volume 91.2 fL (80.0-98.0); NRBC Abs Auto 0.000 X10*3/uL (0.0-0.012); NRBC Pct Auto 0.0 /100WBC (0.0-0.2); Platelet Count 163 X10*3/uL (160-400); Red Blood Count 4.53 X10*6/uL (4.20-5.50); White Blood Count 3.9 X10*3/uL (4.8-10.8)
[2025-01-02 14:35] LABS: Microalbum/Creatinine Ratio Ur 13.4 ug/mg cr (<30)
[2025-01-02 14:47] LABS: Folate 11.1 ng/mL (> or = 4.0); Vitamin B12 363 pg/mL (200-900)
[2025-01-02 17:15] LABS: Alanine Aminotransferase 23 U/L (0-31); Albumin Level 4.3 g/dL (3.5-5.0); Alkaline Phosphatase 85 U/L (39-117); Anion Gap 10 (12-20); Aspartate Amino Transferase 22 U/L (5-31); Blood Urea Nitrogen 17 mg/dL (9-16); Calcium 9.0 mg/dL (8.4-10.2); Carbon Dioxide 28 mmol/L (22-29); Chloride 107 mmol/L (96-108); Cholesterol 178 mg/dL (<200); Estimated Glomerular Filt Rate > 60; HDL Cholesterol 68 mg/dL (>40); Potassium 4.9 mmol/L (3.3-5.1); Sodium 140 mmol/L (135-145); Total Protein 6.5 g/dL (6.5-8.0); Triglycerides 50 mg/dL (<150)
== END 2025-01-02 10:08 | disposition home or self-care (01) ==
LOC: HO.HMGCLDS 10:07
PROVIDERS: PCP Internal Medicine; Visit Provider Internal Medicine
DX: I10 Essential (primary) hypertension (principal); I42.2 Other hypertrophic cardiomyopathy; R73.9 Hyperglycemia, unspecified; E55.9 Vitamin D deficiency, unspecified
CPT/HCPCS: 36415; 80053; 80061; 81001; 82043; 82306; 82570; 82607; 82746; 83036; 84443; 85025